=== PATIENT | male | born 1970 | race Caucasian/White ===

== ENCOUNTER 2019-07-12 12:27 | Emergency (ER) | payer BC ==
--- NOTE | 2019-07-12 14:09 | UC ---
Lower Extremity/Ankle HPI - HPI Summary HPI Summary: Pt "made a mad dash" from the curb and wrenched his right foot today. - History of Current Complaint Stated Complaint: FOOT INJURY Time Seen by Provider: 07/12/19 14:08 Hx Obtained From: Patient Onset/Duration: Sudden Onset Severity Initially: Mild Severity Currently: Mild Aggravating Factor(s): Ambulation Alleviating Factor(s): Rest Able to Bear Weight: Yes - Allergies/Home Medications Allergies/Adverse Reactions: Allergies Allergy/AdvReac Type Severity Reaction Status Date / Time No Known Allergies Allergy Verified 07/12/19 14:13 PMH/Surg Hx/FS Hx/Imm Hx Previously Healthy: Yes - Surgical History Surgical History: Yes Surgery Procedure, Year, and Place: Appendectomy. Vasectomy - Family History Known Family History: Positive: Hypertension - Social History Alcohol Use: Daily Alcohol Amount: 2/DAY Substance Use Type: None Smoking Status (MU): Never Smoked Tobacco - Immunization History Most Recent Tetanus Shot: current Review of Systems All Other Systems Reviewed And Are Negative: Yes Musculoskeletal: Positive: Negative - Points to dorsum right foot for pain but minimal pain. Is Patient Immunocompromised?: No Physical Exam Triage Information Reviewed: Yes Appearance: Well-Appearing, No Pain Distress, Well-Nourished Vital Signs Reviewed: Yes Musculoskeletal: Positive: Strength Intact, ROM Intact, No Edema - Non-tender on palpation Neurological: Positive: Alert, Muscle Tone Normal Psychological Exam: Normal Skin: Positive: Other - No bruising, erythema, deformity or swelling, good periph pulses, cap refill, neurosensation, Achilles intact. Lower Extremity Course/Dx - Course Course Of Treatment: right foot x-ray: BONE DENSITY: Normal. BONES: There is no displaced fracture. There are posterior and plantar calcaneal enthesophytes. JOINTS: There is osteoarthritis of the midfoot and first MTP joint. ALIGNMENT: There is no dislocation. SOFT TISSUES: Unremarkable. OTHER FINDINGS: None. IMPRESSION: OSTEOARTHRITIS. NO ACUTE OSSEOUS INJURY. IF SYMPTOMS PERSIST, RECOMMEND REPEAT IMAGING. - Differential Dx/Diagnosis Provider Diagnosis: Sprain of foot, right Discharge - Sign-Out/Discharge Documenting (check all that apply): Patient Departure All imaging exams completed and their final reports reviewed: Yes - Discharge Plan Condition: Good Disposition: HOME Patient Education Materials: Foot Sprain (ED) Referrals: Denver Regalado MD [Primary Care Provider] - Kurt Daniel MD [Medical Doctor] - Additional Instructions: Ice and elevate intermittently throughout the next 1-2 days, may ambulate as pain permits. Follow up with the orthopedist in 4-5 days if no improvement - Billing Disposition and Condition Condition: GOOD Disposition: Home
[2019-07-12 14:13] VITALS: BP 140/90
== END 2019-07-12 14:45 | disposition home or self-care (01) ==
LOC: UCEAST 12:27
DX: S93.601A Unspecified sprain of right foot, initial encounter (principal); X50.9XXA Other and unspecified overexertion or strenuous movements or postures, initial encounter; Y92.480 Sidewalk as the place of occurrence of the external cause
CPT/HCPCS: 99211; G0463